=== PATIENT | male | born 1955 | race African-American/Black ===

== ENCOUNTER 2022-01-21 12:29 | Inpatient (IN) | payer BC, MEDICARE ==
[~2022-01-21] VITALS: Ht 180.3 cm; Wt 105.2 kg
[2022-01-21] MEDS ORDERED: PIPERACILLIN/TAZ 3.375G PREMIX 50 ML IV ONE (16:15)
[2022-01-21] MEDS ORDERED: VANCOMYCIN 1G PREMIX 200 ML IV ONE (16:15)
[2022-01-21 16:47] LABS: HEMATOCRIT. 40.9 % (42.0-52.0); HEMOGLOBIN. 13.2 g/dL (14.0-18.0); MEAN CORPUSCULAR VOLUME 89.9 fL (80.0-94.0); MEAN PLATELET VOLUME 7.7 fl (7.4-10.4); PLATELET 254 x1000/uL (130-400); RED BLOOD CELL COUNT 4.54 mill/uL (4.7-6.1); RED CELL DISTRIBUTION WIDTH 18.7 % (11.6-14.6)
[2022-01-21 16:53] LABS: CHLORIDE 109 mEq/L (98-107)
[2022-01-21 17:11] LABS: PLATELET ESTIMATE NORMAL
[2022-01-21] MEDS ORDERED: FUROSEMIDE 100MG/10ML VIAL IVP NR (19:00)
[2022-01-21] MEDS ORDERED: DOXYCYCLINE HYCLATE 100 MG/VIAL IV ONE (19:00)
[2022-01-21] MEDS ORDERED: DOXYCYCLINE 100MG in DEXTROSE 5% WATER 100ML IV SCH (19:15)
[2022-01-21] MEDS ORDERED: MORPHINE SULFATE 2 MG/ML CPJ (NOT FOR IM USE) IV ONE (20:00)
[2022-01-21] MEDS ORDERED: CLONIDINE 0.1MG TABLET PO PRN (20:15)
[2022-01-21] MEDS ORDERED: ONDANSETRON HCL 4MG/2ML INJ IV PRN (20:15)
[2022-01-21] MEDS ORDERED: DOCUSATE SODIUM 100MG CAPSULE PO PRN (20:15)
[2022-01-21] MEDS ORDERED: PIPERACILLIN/TAZOBACTAM 3.375GM/50ML PREMIX IV SCH (20:15)
[2022-01-21] MEDS ORDERED: ACETAMINOPHEN 325MG TABLET PO PRN (20:15)
[2022-01-21] MEDS ORDERED: ENOXAPARIN 40MG/0.4ML SYR SUBCUT SCH (20:15)
[2022-01-21] MEDS ORDERED: IPRATROPIUM BROMIDE (0.02%) 0.5MG/2.5ML NEB HHN PRN (20:30)
[2022-01-21] MEDS ORDERED: TRAMADOL 50MG TABLET PO PRN (20:30)
[2022-01-21] MEDS ORDERED: TRAZODONE HCL 50MG TABLET PO PRN (20:30)
[2022-01-21 20:53] LABS: CLARITY URINE CLEAR (CLEAR); COLOR URINE YELLOW (YELLOW); KETONES URINE NEGATIVE (NEGATIVE); LEUKOCYTE ESTERASE URINE NEGATIVE (NEGATIVE); NITRITE URINE NEGATIVE (NEGATIVE); OCCULT BLOOD URINE NEGATIVE (NEGATIVE); PROTEIN URINE 3+ (NEGATIVE); SPECIFIC GRAVITY URINE 1.021 (1.005-1.030)
[2022-01-21] MEDS ORDERED: VANCOMYCIN 1.25GM PMX (XELLIA) 250 ML IV NR (21:00)
[2022-01-21 21:02] LABS: BG BASE EXCESS -8.1 mmol/L (-2.0-2.0); BG CARBOXYHEMOGLOBIN 0.8 % (0.5-1.5); BG DEOXYHEMOGLOBIN 2.4 % (0.0-5.0); BG FRACTION INSPIRED OXYGEN 100; BG HCO3 ACT 16.1 mmol/L (22.0-26.0); BG METHEMOGLOBIN 0.2 % (0.0-1.5); BG OXYGEN SATURATION 97.6 % (92.0-98.5); BG OXYHEMOGLOBIN 96.6 % (94.0-97.0); BG PCO2 29.8 mmHg (35.0-45.0); BG SAMPLE SITE RIGHT RADIAL; BG TOTAL HEMOGLOBIN 13.7 g/dL (12.0-18.0); BG VENT MODE MASK - BIPAP
[2022-01-21] MEDS ORDERED: PIPERACILLIN/TAZOBACTAM 3.375G in DEXT 5% WATER 50ML IV SCH (22:00)
[2022-01-22] VITALS (14 sets, daily range): BP systolic 98–134; BP diastolic 33–81
[2022-01-22] MEDS ORDERED: PNEUMOCOCCAL 23-VAL P-SAC VAC 0.5 ML IM ONE (03:45)
[2022-01-22] MEDS: PIPERACILLIN/TAZOBACTAM 3.375G in DEXT 5% WATER 50ML IV SCH ×3 (05:10→21:52)
[2022-01-22 07:18] LABS: CHLORIDE 109 mEq/L (98-107)
[2022-01-22] MEDS ORDERED: FUROSEMIDE 40MG/4ML VIAL IV SCH (09:00)
[2022-01-22 09:30] LABS: HEMATOCRIT. 37.1 % (42.0-52.0); HEMOGLOBIN. 12.1 g/dL (14.0-18.0); MEAN CORPUSCULAR HEMOGLOBIN 28.6 pg (28.0-32.0); MEAN CORPUSCULAR VOLUME 87.8 fL (80.0-94.0); MEAN PLATELET VOLUME 7.7 fl (7.4-10.4); PLATELET 238 x1000/uL (130-400); RED BLOOD CELL COUNT 4.22 mill/uL (4.7-6.1); RED CELL DISTRIBUTION WIDTH 17.5 % (11.6-14.6)
[2022-01-22 10:19] LABS: PLATELET ESTIMATE NORMAL
[2022-01-22] MEDS ORDERED: MORPHINE SULFATE 2 MG/ML CPJ (NOT FOR IM USE) IV NR (11:20)
[2022-01-22] MEDS: DILTIAZEM HCL 30MG TABLET PO SCH ×2 (11:29→16:45)
[2022-01-22] MEDS ORDERED: NALOXONE HCL 0.4MG/ML VIAL IV PRN (11:30)
[2022-01-22] MEDS: SODIUM HYPOCHLORITE SOLUTION (0.5%)FULL STRENGTH TOP SCH (11:39)
[2022-01-22 13:30] LABS: INR 1.3; PROTHROMBIN TIME 13.9 sec (9.6-11.0)
[2022-01-22] MEDS: VANCOMYCIN 1 GM IV SCH (14:24)
[2022-01-22] MEDS: ENOXAPARIN 100MG/ML SYR SUBCUT SCH (15:43)
[2022-01-22] MEDS: FUROSEMIDE 40MG/4ML VIAL IV SCH (16:45)
[2022-01-22] MEDS: CARVEDILOL 3.125 MG TABLET PO SCH (20:36)
[2022-01-23] VITALS (13 sets, daily range): BP systolic 89–128; BP diastolic 30–78
[2022-01-23] MEDS: DILTIAZEM HCL 30MG TABLET PO SCH ×5 (06:00→23:38)
[2022-01-23] MEDS: ENOXAPARIN 100MG/ML SYR SUBCUT SCH ×2 (06:10→17:42)
[2022-01-23] MEDS: PIPERACILLIN/TAZOBACTAM 3.375G in DEXT 5% WATER 50ML IV SCH ×3 (06:10→21:12)
[2022-01-23 07:23] LABS: HEMATOCRIT. 32.9 % (42.0-52.0); HEMOGLOBIN. 10.9 g/dL (14.0-18.0); MEAN CORPUSCULAR HEMOGLOBIN 28.9 pg (28.0-32.0); MEAN CORPUSCULAR VOLUME 86.9 fL (80.0-94.0); MEAN PLATELET VOLUME 7.9 fl (7.4-10.4); PLATELET 229 x1000/uL (130-400); RED BLOOD CELL COUNT 3.78 mill/uL (4.7-6.1); RED CELL DISTRIBUTION WIDTH 17.2 % (11.6-14.6)
[2022-01-23] MEDS ORDERED: POTASSIUM CHLORIDE 20MEQ TABLET SR PO NR (09:07)
[2022-01-23] MEDS: VANCOMYCIN 1 GM IV SCH (09:32)
[2022-01-23] MEDS: LOSARTAN POTASSIUM 25 MG TABLET PO SCH (09:33)
[2022-01-23] MEDS: FUROSEMIDE 40MG/4ML VIAL IV SCH ×2 (09:33→16:44)
[2022-01-23] MEDS: CARVEDILOL 3.125 MG TABLET PO SCH ×2 (09:34→21:00)
[2022-01-23] MEDS: SODIUM HYPOCHLORITE SOLUTION (0.5%)FULL STRENGTH TOP SCH (09:35)
[2022-01-23 15:08] LABS: PLATELET ESTIMATE NORMAL
[2022-01-24] VITALS: BP 112/66
[2022-01-24] MEDS: VANCOMYCIN 1 GM IV SCH (01:22)
[2022-01-24 04:00] VITALS: BP 102/74
[2022-01-24] MEDS: DILTIAZEM HCL 30MG TABLET PO SCH ×2 (05:32→12:31)
[2022-01-24] MEDS: ENOXAPARIN 100MG/ML SYR SUBCUT SCH (05:32)
[2022-01-24] MEDS: PIPERACILLIN/TAZOBACTAM 3.375G in DEXT 5% WATER 50ML IV SCH ×3 (05:32→21:47)
[2022-01-24 06:02] LABS: HEMATOCRIT. 33.5 % (42.0-52.0); HEMOGLOBIN. 11.3 g/dL (14.0-18.0); MEAN CORPUSCULAR HEMOGLOBIN 29.4 pg (28.0-32.0); MEAN CORPUSCULAR VOLUME 87.3 fL (80.0-94.0); MEAN PLATELET VOLUME 8.3 fl (7.4-10.4); PLATELET 229 x1000/uL (130-400); RED BLOOD CELL COUNT 3.84 mill/uL (4.7-6.1); RED CELL DISTRIBUTION WIDTH 17.1 % (11.6-14.6)
[2022-01-24 08:00] VITALS: BP 111/71
[2022-01-24 08:30] LABS: PLATELET ESTIMATE NORMAL
[2022-01-24] MEDS: FUROSEMIDE 40MG/4ML VIAL IV SCH ×2 (08:33→17:35)
[2022-01-24] MEDS: LOSARTAN POTASSIUM 25 MG TABLET PO SCH (08:33)
[2022-01-24] MEDS: SODIUM HYPOCHLORITE SOLUTION (0.5%)FULL STRENGTH TOP SCH (08:34)
[2022-01-24] MEDS: CARVEDILOL 3.125 MG TABLET PO SCH ×2 (08:34→20:16)
[2022-01-24] MEDS ORDERED: LIDOCAINE HCL 1% 10 MG/ML 10ML VIAL INJ SCH (09:00)
[2022-01-24 09:05] LABS: CHLORIDE 104 mEq/L (98-107)
[2022-01-24] MEDS ORDERED: VANCOMYCIN 1GM PMX (XELLIA) 200 ML IV SCH (09:54)
[2022-01-24] MEDS ORDERED: POTASSIUM CHLORIDE 20MEQ TABLET SR PO NR (10:45)
[2022-01-24 11:47] VITALS: BP 114/66
[2022-01-24 15:42] LABS: CREATINE KINASE MB FRACTION 1.3 ng/mL (0.5-3.6)
[2022-01-24 16:00] VITALS: BP 113/76
[2022-01-24] MEDS: DILTIAZEM HCL 60MG TABLET PO SCH (17:35)
[2022-01-24] MEDS: ENOXAPARIN 120MG/0.8ML SYR SUBCUT SCH (17:35)
[2022-01-24 20:00] VITALS: BP 106/68
[2022-01-24] MEDS: VANCOMYCIN 1GM PMX (XELLIA) 200 ML IV SCH (20:16)
[2022-01-25] VITALS (8 sets, daily range): BP systolic 99–120; BP diastolic 63–78
[2022-01-25] MEDS: PIPERACILLIN/TAZOBACTAM 3.375G in DEXT 5% WATER 50ML IV SCH ×3 (06:19→22:28)
[2022-01-25] MEDS: DILTIAZEM HCL 60MG TABLET PO SCH ×5 (06:20→23:29)
[2022-01-25] MEDS: ENOXAPARIN 120MG/0.8ML SYR SUBCUT SCH ×2 (06:20→18:20)
[2022-01-25] MEDS: SODIUM HYPOCHLORITE SOLUTION (0.5%)FULL STRENGTH TOP SCH (08:58)
[2022-01-25] MEDS: CARVEDILOL 3.125 MG TABLET PO SCH ×2 (08:59→21:00)
[2022-01-25] MEDS: FUROSEMIDE 40MG/4ML VIAL IV SCH ×2 (08:59→18:19)
[2022-01-25 12:50] LABS: HEMOGLOBIN. 11.9 g/dL (14.0-18.0); MEAN CORPUSCULAR HEMOGLOBIN 29.2 pg (28.0-32.0); MEAN CORPUSCULAR VOLUME 88.2 fL (80.0-94.0); MEAN PLATELET VOLUME 8.2 fl (7.4-10.4); PLATELET 264 x1000/uL (130-400); RED BLOOD CELL COUNT 4.08 mill/uL (4.7-6.1); RED CELL DISTRIBUTION WIDTH 17.3 % (11.6-14.6)
[2022-01-25 12:59] LABS: CHLORIDE 103 mEq/L (98-107)
[2022-01-25] MEDS: VANCOMYCIN 1GM PMX (XELLIA) 200 ML IV SCH (13:24)
[2022-01-25] MEDS ORDERED: POTASSIUM CHLORIDE 20MEQ TABLET SR PO NR (16:15)
[2022-01-25] MEDS ORDERED: MAGNESIUM 1 G PREMIX 100 ML IV NR (18:00)
[2022-01-25 20:25] LABS: PLATELET ESTIMATE NORMAL
[2022-01-26] VITALS: BP 110/77
[2022-01-26 04:00] VITALS: BP 90/62
[2022-01-26] MEDS: PIPERACILLIN/TAZOBACTAM 3.375G in DEXT 5% WATER 50ML IV SCH ×3 (05:22→21:18)
[2022-01-26] MEDS: ENOXAPARIN 120MG/0.8ML SYR SUBCUT SCH (05:22)
[2022-01-26] MEDS: DILTIAZEM HCL 60MG TABLET PO SCH (05:22)
[2022-01-26 08:00] VITALS: BP 122/82
[2022-01-26] MEDS: FUROSEMIDE 40MG/4ML VIAL IV SCH (08:01)
[2022-01-26] MEDS: VANCOMYCIN 1GM PMX (XELLIA) 200 ML IV SCH (08:01)
[2022-01-26] MEDS: CARVEDILOL 3.125 MG TABLET PO SCH (08:02)
[2022-01-26] MEDS: SODIUM HYPOCHLORITE SOLUTION (0.5%)FULL STRENGTH TOP SCH (08:02)
[2022-01-26 12:00] VITALS: BP 114/68
[2022-01-26] MEDS ORDERED: LOSA25TA3 PO ×2 (14:33)
[2022-01-26] MEDS ORDERED: DILT180C66 PO ×2 (14:33)
[2022-01-26] MEDS ORDERED: FURO40TA5 PO ×2 (14:33)
[2022-01-26] MEDS ORDERED: RIVA10TA PO ×2 (14:33)
[2022-01-26] MEDS ORDERED: SPIR25TA PO ×2 (14:33)
[2022-01-26] MEDS: SPIRONOLACTONE 25MG TABLET PO SCH (15:02)
[2022-01-26 16:00] VITALS: BP 102/64
[2022-01-26] MEDS ORDERED: RIVAROXABAN 10 MG TABLET PO SCH (17:00)
[2022-01-26] MEDS: DILTIAZEM HCL 180MG CAPSULE CD 24HR PO SCH ×2 (18:06→21:18)
[2022-01-26] MEDS ORDERED: NALOXONE HCL 0.4MG/ML VIAL IV PRN (19:45)
[2022-01-26 20:00] VITALS: BP 107/88
[2022-01-27] VITALS: BP 126/87
[2022-01-27] MEDS: VANCOMYCIN 1GM PMX (XELLIA) 200 ML IV SCH ×2 (03:02→20:29)
[2022-01-27 04:00] VITALS: BP 113/66
[2022-01-27] MEDS: PIPERACILLIN/TAZOBACTAM 3.375G in DEXT 5% WATER 50ML IV SCH ×3 (05:21→21:53)
[2022-01-27 07:40] LABS: CHLORIDE 101 mEq/L (98-107)
[2022-01-27 08:00] VITALS: BP 125/80
[2022-01-27] MEDS ORDERED: LOSARTAN POTASSIUM 25 MG TABLET PO SCH (09:00)
[2022-01-27] MEDS: DILTIAZEM HCL 180MG CAPSULE CD 24HR PO SCH ×2 (09:23→21:53)
[2022-01-27] MEDS: LOSARTAN POTASSIUM 25 MG TABLET PO SCH (09:23)
[2022-01-27] MEDS: SPIRONOLACTONE 25MG TABLET PO SCH (09:24)
[2022-01-27] MEDS: SODIUM HYPOCHLORITE SOLUTION (0.5%)FULL STRENGTH TOP SCH (09:25)
[2022-01-27] MEDS: FUROSEMIDE 40MG TABLET PO SCH (09:25)
[2022-01-27 12:00] VITALS: BP 104/48
[2022-01-27 16:00] VITALS: BP 112/82
[2022-01-27] MEDS: RIVAROXABAN 20 MG TABLET PO SCH (16:16)
[2022-01-27 20:00] VITALS: BP 117/76
[2022-01-28] VITALS: BP 112/65
[2022-01-28 04:01] VITALS: BP 114/91
[2022-01-28] MEDS: PIPERACILLIN/TAZOBACTAM 3.375G in DEXT 5% WATER 50ML IV SCH ×3 (05:05→21:39)
[2022-01-28 06:28] LABS: BASOPHILS % 0.9 % (0.0-2.0); EOSINOPHILS % 2.5 % (0.0-5.0); HEMATOCRIT. 36.9 % (42.0-52.0); HEMOGLOBIN. 12.3 g/dL (14.0-18.0); LYMPHOCYTES % 10.1 % (20.0-50.0); MEAN CORPUSCULAR HEMOGLOBIN 29.2 pg (28.0-32.0); MEAN CORPUSCULAR VOLUME 87.2 fL (80.0-94.0); MEAN PLATELET VOLUME 8.1 fl (7.4-10.4); MONOCYTES % 13.5 % (2.0-8.0); PLATELET 253 x1000/uL (130-400); RED BLOOD CELL COUNT 4.23 mill/uL (4.7-6.1); RED CELL DISTRIBUTION WIDTH 17.5 % (11.6-14.6)
[2022-01-28 08:00] VITALS: BP 120/83
[2022-01-28] MEDS: LOSARTAN POTASSIUM 25 MG TABLET PO SCH (09:02)
[2022-01-28] MEDS: SPIRONOLACTONE 25MG TABLET PO SCH (09:02)
[2022-01-28] MEDS: DILTIAZEM HCL 180MG CAPSULE CD 24HR PO SCH ×2 (09:02→21:00)
[2022-01-28] MEDS: SODIUM HYPOCHLORITE SOLUTION (0.5%)FULL STRENGTH TOP SCH (09:03)
[2022-01-28] MEDS: FUROSEMIDE 40MG TABLET PO SCH (09:03)
[2022-01-28 12:00] VITALS: BP 118/76
[2022-01-28] MEDS ORDERED: LIDOCAINE HCL 1% 10 MG/ML 10ML VIAL IJ NR (13:00)
[2022-01-28 16:00] VITALS: BP 113/72
[2022-01-28] MEDS: RIVAROXABAN 20 MG TABLET PO SCH (16:45)
[2022-01-28 20:00] VITALS: BP 109/64
[2022-01-28] MEDS: VANCOMYCIN 1.25GM PMX (XELLIA) 250 ML IV SCH (21:38)
[2022-01-29] VITALS: BP 109/76
[2022-01-29 04:00] VITALS: BP 110/74
[2022-01-29] MEDS: PIPERACILLIN/TAZOBACTAM 3.375G in DEXT 5% WATER 50ML IV SCH ×2 (06:44→14:01)
[2022-01-29 08:00] VITALS: BP 114/84
[2022-01-29] MEDS: DILTIAZEM HCL 180MG CAPSULE CD 24HR PO SCH ×2 (09:50→20:40)
[2022-01-29] MEDS: FUROSEMIDE 40MG TABLET PO SCH (09:50)
[2022-01-29] MEDS: LOSARTAN POTASSIUM 25 MG TABLET PO SCH (09:50)
[2022-01-29] MEDS: SPIRONOLACTONE 25MG TABLET PO SCH (09:51)
[2022-01-29] MEDS: SODIUM HYPOCHLORITE SOLUTION (0.5%)FULL STRENGTH TOP SCH (09:51)
[2022-01-29 12:00] VITALS: BP 114/84
[2022-01-29 13:17] LABS: CHLORIDE 106 mEq/L (98-107)
[2022-01-29 16:00] VITALS: BP 124/64
[2022-01-29] MEDS: RIVAROXABAN 20 MG TABLET PO SCH (17:31)
[2022-01-29] MEDS ORDERED: RIVA20TA PO (18:09)
[2022-01-29] MEDS ORDERED: SPIR25TA PO (18:09)
[2022-01-29] MEDS ORDERED: DILT180C66 PO (18:09)
[2022-01-29] MEDS ORDERED: AMOX1TAB16 MT (18:09)
[2022-01-29] MEDS ORDERED: FURO40TA5 PO (18:09)
[2022-01-29] MEDS ORDERED: LOSA25TA3 PO (18:09)
[2022-01-29] MEDS ORDERED: SULF1TAB48 MT (18:09)
[2022-01-29 20:00] VITALS: BP 104/70
[2022-01-29] MEDS: VANCOMYCIN 1.25GM PMX (XELLIA) 250 ML IV SCH (20:36)
[2022-01-30] VITALS: BP 122/54
[2022-01-30] MEDS: PIPERACILLIN/TAZOBACTAM 3.375G in DEXT 5% WATER 50ML IV SCH ×3 (03:11→13:33)
[2022-01-30 04:00] VITALS: BP 108/69
[2022-01-30 08:00] VITALS: BP 108/77
[2022-01-30] MEDS: SPIRONOLACTONE 25MG TABLET PO SCH (09:15)
[2022-01-30] MEDS: FUROSEMIDE 40MG TABLET PO SCH (09:15)
[2022-01-30] MEDS: DILTIAZEM HCL 180MG CAPSULE CD 24HR PO SCH (09:15)
[2022-01-30] MEDS: LOSARTAN POTASSIUM 25 MG TABLET PO SCH (09:15)
[2022-01-30] MEDS: SODIUM HYPOCHLORITE SOLUTION (0.5%)FULL STRENGTH TOP SCH (09:16)
[2022-01-30 11:32] VITALS: BP 104/76
[2022-01-30 16:18] VITALS: BP 100/67
[2022-01-30] MEDS: RIVAROXABAN 20 MG TABLET PO SCH (16:35)
[2022-01-30 16:45] VITALS: BP 100/67
== END 2022-01-30 18:44 | DRG 853 ==
LOC: ER 12:29 → EDBEDREQ 16:39 → 5EST 19:59 → EDBEDREQSVC 20:07 → EDBEDREQTM 20:07 → EDBEDREQ 20:07 → ENRESERV 22:42 → 5EST 01-22 06:03 → 6EST 01-28 10:10
PROVIDERS: ADMIT Internal Medicine; ATTEND Internal Medicine
PROC: 5A09457 Assistance with Respiratory Ventilation, 24-96 Consecutive Hours, Continuous Positive Airway Pressure (ICD-10-PCS; 2022-01-21)
PROC: 0KBT0ZZ Excision of Left Lower Leg Muscle, Open Approach (ICD-10-PCS; principal; 2022-01-22)
PROC: 0KBT0ZZ Excision of Left Lower Leg Muscle, Open Approach (ICD-10-PCS; 2022-01-24)
PROC: 0KBT0ZZ Excision of Left Lower Leg Muscle, Open Approach (ICD-10-PCS; 2022-01-29)
DX: A41.9 Sepsis, unspecified organism (principal); J18.9 Pneumonia, unspecified organism; J96.00 Acute respiratory failure, unspecified whether with hypoxia or hypercapnia; I33.0 Acute and subacute infective endocarditis; I50.23 Acute on chronic systolic (congestive) heart failure; E87.2 Acidosis; I42.0 Dilated cardiomyopathy; I48.92 Unspecified atrial flutter; I13.0 Hypertensive heart and chronic kidney disease with heart failure and stage 1 through stage 4 chronic kidney disease, or unspecified chronic kidney disease; E87.6 Hypokalemia; I48.91 Unspecified atrial fibrillation; R65.20 Severe sepsis without septic shock; I34.0 Nonrheumatic mitral (valve) insufficiency; I36.1 Nonrheumatic tricuspid (valve) insufficiency; D64.9 Anemia, unspecified; I27.81 Cor pulmonale (chronic); I27.21 Secondary pulmonary arterial hypertension; N18.9 Chronic kidney disease, unspecified; S81.802A Unspecified open wound, left lower leg, initial encounter; X58.XXXA Exposure to other specified factors, initial encounter; Z20.822 Contact with and (suspected) exposure to COVID-19; Z82.49 Family history of ischemic heart disease and other diseases of the circulatory system; Z87.891 Personal history of nicotine dependence; Z91.19 Patient's noncompliance with other medical treatment and regimen; Z79.01 Long term (current) use of anticoagulants; Y93.89 Activity, other specified; Y92.89 Other specified places as the place of occurrence of the external cause; Y99.8 Other external cause status
CPT/HCPCS: 36415; 36600; 71045; 73590; 73718; 80048; 80053; 80061; 80202; 81003; 82375; 82550; 82553; 82805; 83605; 83735; 83880; 84145; 84443; 84484; 85025; 87426; 90732; 93005; 93306; 93922; 93970; 94660; 97162; 99291; J1650; J1940; J2270; J2543; J3370; J3475; J3490; J7040; J7060